=== PATIENT | female | born 1970 | race Caucasian/White ===

== ENCOUNTER 2020-09-29 19:26 | Emergency (ER) | payer BC ==
[~2020-09-29] VITALS: Ht 165.1 cm; Wt 117.3 kg
[2020-09-29] MEDS ORDERED: BREO1INH3 INH (20:52)
[2020-09-29] MEDS ORDERED: CETI-24 PO (20:52)
[2020-09-29] MEDS ORDERED: POTA2TAB2 PO (20:52)
[2020-09-29] MEDS ORDERED: MAGN1CAP PO (20:52)
[2020-09-29] MEDS ORDERED: PROAAER10 INH (20:52)
[2020-09-29] MEDS ORDERED: SUPETAB44 PO (20:52)
[2020-09-29] MEDS ORDERED: CALC-218 PO (20:52)
[2020-09-29] MEDS ORDERED: [UNRECOGNIZED DRUG - CODE] PO (20:52)
[2020-09-29] MEDS ORDERED: GNP1000T11 PO (20:52)
[2020-09-29] MEDS ORDERED: MECL-136 PO (20:52)
[2020-09-29] MEDS ORDERED: GNP45TAB2 PO (20:52)
[2020-09-29] MEDS ORDERED: SILVER NITRATE APPLICATOR TOP ONE (21:10)
[2020-09-29 22:08] VITALS: BP 137/83
== END 2020-09-29 22:42 | disposition home or self-care (01) ==
LOC: M ED 19:26
DX: S01.20XA Unspecified open wound of nose, initial encounter (principal); W01.198A Fall on same level from slipping, tripping and stumbling with subsequent striking against other object, initial encounter; Y92.89 Other specified places as the place of occurrence of the external cause; J45.909 Unspecified asthma, uncomplicated; Z88.0 Allergy status to penicillin; Z88.5 Allergy status to narcotic agent; Z88.8 Allergy status to other drugs, medicaments and biological substances; Z91.030 Bee allergy status; Z91.040 Latex allergy status; Z79.899 Other long term (current) drug therapy; F17.210 Nicotine dependence, cigarettes, uncomplicated